=== PATIENT | male | born 1965 | race Caucasian/White ===

== ENCOUNTER → 2018-01-26 09:02 | Outpatient (CLI) | payer MEDICARE ==
[2011-03-24 11:19] VITALS: BMI 25.1
[~2018-01-26 09:02] MED LIST: AMITRIPTYLINE H50 MG PO; BREO ELLIPTA 11 EACH INH; EFFEXOR75 MG PO; HYDROCODONE-APA1 TAB PO; INCRUSE ELLI62.5 MCG INH; LIPITOR20 MG PO; NEURONTIN800 MG PO; NIASPAN500 MG PO; PRAVACHOL40 MG PO; VENTOLIN HFA18 GM INH; VOLTAREN100 GM TOPICAL; VOLTAREN75 MG PO
== END | disposition home or self-care (01) ==
LOC: D.RT 09:00
DX: J44.9 Chronic obstructive pulmonary disease, unspecified (principal)

== ENCOUNTER → 2018-02-02 15:56 | Outpatient (CLI) | payer MEDICARE ==
[2011-03-24 11:19] VITALS: BMI 25.1
[2018-02-06 18:16] LABS: FUNGAL - ASP FLAVUS Negative (Neg:<1:1); FUNGAL - ASP NIGER Negative (Neg:<1:1); FUNGAL - ASPER FUMIGATUS Negative (Neg:<1:1)
[2018-03-23 09:38] VITALS: BMI 26.3
== END | disposition home or self-care (01) ==
LOC: D.LABREF 15:56
PROVIDERS: Internal Medicine Pulmonary Disease
DX: R91.1 Solitary pulmonary nodule (principal)

== ENCOUNTER → 2018-02-04 11:10 | Outpatient (CLI) | payer MEDICARE ==
[2011-03-24 11:19] VITALS: BMI 25.1
[2018-03-23 09:38] VITALS: BMI 26.3
== END | disposition home or self-care (01) ==
LOC: D.CT 11:10
DX: R91.1 Solitary pulmonary nodule (principal)

== ENCOUNTER 2018-03-23 08:37 | Outpatient (CLI) | payer MEDICARE ==
[~2018-03-23] VITALS: Ht 188 cm; Wt 93.2 kg
--- NOTE | ~2018-03-23 | OP ---
PATIENT NAME: VERO SANDOVAL MEDICAL RECORD: [id number] :63 LOCATION:[facility] ADMISSION DATE: SURGEON: CHARITO COLON MD DATE OF OPERATION: 03/23/2018 PROCEDURE: Fiberoptic bronchoscopy. INDICATION: Ms. Sandoval was recently diagnosed with bilateral upper lobe pulmonary nodule. The PET scan SUV level was less than 2. Fiberoptic bronchoscopy was carried out to rule out infectious process. MONITORING: EKG, pulse, and blood pressure were monitored throughout the procedure. MEDICATIONS: Versed 5 mg IV in divided doses, fentanyl 100 mcg IV in divided doses. DESCRIPTION OF PROCEDURE: After obtaining conscious sedation, fiberoptic bronchoscope was easily passed through the mouth. The epiglottis was normal. The vocal cords were normal, moving equally on phonation. The main trachea was normal. The vince was sharp. There was thick whitish secretion from the right upper lobe and right lower lobe. There were no endobronchial lesions seen. The left main bronchus was normal. The subsegment to the left upper lobe, left lower lobe within normal range. There was thick whitish secretion. Specimen washing was obtained bilaterally and especially the upper lobe sent for routine culture and sensitivity, AFB and fungus and cytology. Overall, the patient tolerated the procedure very well. TRANSINT:[id number] Voice Confirmation ID: [id number] DOCUMENT ID: [id number] CHARITO COLON MD CC: [id number] DICTATION DATE: 03/23/18 141 J2EE PROGRAMMER: 03/23/18 1428 DEP CLI 03/23/18 [id number] [place] [address]
[2018-03-23] MEDS ORDERED: HYDROCODONE-APA1 TAB PO (09:23)
[2018-03-23] MEDS ORDERED: PRAVACHOL40 MG PO (09:24)
[2018-03-23] MEDS ORDERED: LIPITOR20 MG PO (09:24)
[2018-03-23] MEDS ORDERED: BREO ELLIPTA 11 EACH INH (09:25)
[2018-03-23] MEDS ORDERED: VENTOLIN HFA18 GM INH (09:25)
[2018-03-23] MEDS ORDERED: AMITRIPTYLINE H50 MG PO (09:26)
[2018-03-23] MEDS ORDERED: EFFEXOR75 MG PO (09:26)
[2018-03-23] MEDS ORDERED: INCRUSE ELLI62.5 MCG INH (09:26)
[2018-03-23] MEDS ORDERED: NEURONTIN800 MG PO (09:27)
[2018-03-23] MEDS ORDERED: NIASPAN500 MG PO (09:27)
[2018-03-23] MEDS ORDERED: VOLTAREN100 GM TOPICAL (09:27)
[2018-03-23] MEDS ORDERED: VOLTAREN75 MG PO (09:28)
[2018-03-23 09:38] VITALS: Ht 188 cm; Wt 93.2 kg
[2018-03-23 10:05] LABS: BASOPHILS 0.4 % (0-2); EOSINOPHILS 2.1 % (0-7); HEMATOCRIT 40.7 % (42.0-54.0); HEMOGLOBIN 13.2 g/dL (13.5-17.5); IMMATURE GRANULOCYTES 0.2 % (0-5); LYMPHOCYTES 29.5 % (15-50); MCH 31.7 pg (26.0-34.0); MCHC 32.4 g/dL (31.0-37.0); MCV 97.6 fL (80.0-100.0); MEAN PLATELET VOLUME 9.9 fL (7.4-10.4); MONOCYTES 8.1 % (2-11); NEUTROPHILS 59.7 % (40-80); PLATELET COUNT 158 10x3/uL (130-400); RBC 4.17 10x6/uL (4.20-6.10); RDW 14.7 % (11.5-14.5); WBC 5.6 10x3/uL (4.8-10.8)
[2018-03-23 10:12] LABS: INR 0.87 (0.85-1.17); PROTIME 11.5 SECONDS (11.6-15.0)
[2018-03-23 10:13] LABS: APTT 29.7 SECONDS (22.8-39.4)
[2018-03-24 14:28] LABS: FUNGUS STAIN Final report (())
[2018-03-24 20:09] LABS: ACID FAST SMEAR Negative (()); AFB SPECIMEN PROCESSING Concentration (())
[2018-03-25 03:13] LABS: ANGIOTENSIN CONVERTING ENZYME 56 U/L (14-82)
[2018-03-26 18:10] LABS: FUNGAL - ASP FLAVUS Negative (Neg:<1:1); FUNGAL - ASP NIGER Negative (Neg:<1:1); FUNGAL - ASPER FUMIGATUS Negative (Neg:<1:1)
[2018-03-29 18:09] LABS: FUNGUS MYCOLOGY CULTURE Preliminary report (())
[2018-04-16 12:17] LABS: ACID FAST CULTURE Positive (())
== END 2018-03-23 12:26 | disposition home or self-care (01) ==
LOC: D.OPS 08:37
PROVIDERS: Internal Medicine Pulmonary Disease
DX: R91.1 Solitary pulmonary nodule (principal); J43.9 Emphysema, unspecified; R06.00 Dyspnea, unspecified; F17.200 Nicotine dependence, unspecified, uncomplicated; Z01.812 Encounter for preprocedural laboratory examination

== ENCOUNTER → 2018-07-13 14:03 | Outpatient (CLI) | payer MEDICARE ==
[2018-03-23 09:38] VITALS: BMI 26.3
== END | disposition home or self-care (01) ==
LOC: D.CT 07-12 10:30
DX: R91.8 Other nonspecific abnormal finding of lung field (principal)

== ENCOUNTER → 2018-08-20 11:57 | Outpatient (CLI) | payer MEDICARE ==
[2018-03-23 09:38] VITALS: BMI 26.3
[2018-08-20 13:31] LABS: ALKALINE PHOSPHATASE 147 U/L (46-116); ALT (SGPT) 46 U/L (10-68); BILIRUBIN - TOTAL 0.23 mg/dL (0.2-1.3); CALC OSMOLALITY 286 mosm/kg (275-300); CALCIUM 8.8 mg/dL (8.5-10.1); CARBON DIOXIDE 28.7 mmol/L (21.0-32.0); CHLORIDE - SERUM 107 mmol/L (98-107); CREATININE - SERUM 0.7 mg/dL (0.6-1.3); GLUCOSE 91 mg/dL (74-106); POTASSIUM - SERUM 4.3 mmol/L (3.5-5.1); PROTEIN - SERUM 7.1 g/dL (6.4-8.2); SODIUM 144 mmol/L (136-145); UREA NITROGEN 13 mg/dL (7-18); eGFR NON AFRICAN AMERICAN > 90 mL/min (90-120)
[2018-08-20 13:36] LABS: BASOPHILS 0.5 % (0-2); EOSINOPHILS 2.8 % (0-7); HEMATOCRIT 43.5 % (42.0-54.0); HEMOGLOBIN 14.5 g/dL (13.5-17.5); IMMATURE GRANULOCYTES 0.5 % (0-5); LYMPHOCYTES 37.6 % (15-50); MCHC 33.3 g/dL (31.0-37.0); MCV 99.1 fL (80.0-100.0); MEAN PLATELET VOLUME 10.4 fL (7.4-10.4); NEUTROPHILS 50.6 % (40-80); PLATELET COUNT 197 10x3/uL (130-400); RBC 4.39 10x6/uL (4.20-6.10); RDW 13.9 % (11.5-14.5); WBC 3.9 10x3/uL (4.8-10.8)
== END | disposition home or self-care (01) ==
LOC: D.LABREF 11:57
PROVIDERS: Student in an Organized Health Care Education/Training Program
DX: Z51.81 Encounter for therapeutic drug level monitoring (principal); Z79.2 Long term (current) use of antibiotics

== ENCOUNTER → 2018-09-28 16:07 | Outpatient (CLI) | payer MEDICARE ==
[2018-03-23 09:38] VITALS: BMI 26.3
[2018-09-28 18:53] LABS: BASOPHILS 0.8 % (0-2); EOSINOPHILS 1.8 % (0-7); HEMATOCRIT 40.6 % (42.0-54.0); HEMOGLOBIN 13.4 g/dL (13.5-17.5); LYMPHOCYTES 34.9 % (15-50); MCH 32.4 pg (26.0-34.0); MCV 98.3 fL (80.0-100.0); MEAN PLATELET VOLUME 10.3 fL (7.4-10.4); MONOCYTES 7.9 % (2-11); NEUTROPHILS 54.6 % (40-80); PLATELET COUNT 169 10x3/uL (130-400); RBC 4.13 10x6/uL (4.20-6.10); RDW 13.7 % (11.5-14.5); WBC 3.9 10x3/uL (4.8-10.8)
[2018-09-28 19:15] LABS: ALBUMIN 3.7 g/dL (3.4-5.0); ALKALINE PHOSPHATASE 133 U/L (46-116); ALT (SGPT) 56 U/L (10-68); BILIRUBIN - TOTAL 0.26 mg/dL (0.2-1.3); CALC OSMOLALITY 284 mosm/kg (275-300); CALCIUM 8.5 mg/dL (8.5-10.1); CARBON DIOXIDE 32.5 mmol/L (21.0-32.0); CHLORIDE - SERUM 106 mmol/L (98-107); CREATININE - SERUM 0.7 mg/dL (0.6-1.3); GLUCOSE 79 mg/dL (74-106); POTASSIUM - SERUM 4.1 mmol/L (3.5-5.1); PROTEIN - SERUM 6.6 g/dL (6.4-8.2); SODIUM 143 mmol/L (136-145); UREA NITROGEN 14 mg/dL (7-18); eGFR NON AFRICAN AMERICAN > 90 mL/min (90-120)
== END | disposition home or self-care (01) ==
LOC: D.LABREF 16:07
PROVIDERS: Student in an Organized Health Care Education/Training Program
DX: Z51.81 Encounter for therapeutic drug level monitoring (principal); Z79.2 Long term (current) use of antibiotics

== ENCOUNTER → 2018-11-30 13:19 | Outpatient (CLI) | payer MEDICARE ==
[2018-03-23 09:38] VITALS: BMI 26.3
[2018-12-01 19:09] LABS: ACID FAST SMEAR Negative (()); AFB SPECIMEN PROCESSING Concentration (())
== END | disposition home or self-care (01) ==
LOC: D.LABREF 13:19
PROVIDERS: Student in an Organized Health Care Education/Training Program
DX: A31.0 Pulmonary mycobacterial infection (principal)

== ENCOUNTER → 2018-12-27 12:38 | Outpatient (CLI) | payer MEDICARE ==
[2018-03-23 09:38] VITALS: BMI 26.3
== END | disposition home or self-care (01) ==
LOC: D.CT 12:38
DX: R91.8 Other nonspecific abnormal finding of lung field (principal)

== ENCOUNTER → 2019-06-03 09:30 | Outpatient (CLI) | payer MEDICARE ==
[2018-03-23 09:38] VITALS: BMI 26.3
== END | disposition home or self-care (01) ==
LOC: D.CT 09:30
PROVIDERS: ATTEND Internal Medicine Pulmonary Disease
DX: R91.1 Solitary pulmonary nodule (principal)

== ENCOUNTER → 2019-06-08 11:03 | Outpatient (CLI) | payer MEDICARE ==
[2018-03-23 09:38] VITALS: BMI 26.3
[2019-06-09 18:08] LABS: ACID FAST SMEAR Negative (()); AFB SPECIMEN PROCESSING Concentration (())
== END | disposition home or self-care (01) ==
LOC: D.LABREF 11:03
PROVIDERS: ATTEND Internal Medicine Pulmonary Disease
DX: A31.0 Pulmonary mycobacterial infection (principal)

== ENCOUNTER → 2019-10-27 11:45 | Outpatient (CLI) | payer MEDICARE ==
[2018-03-23 09:38] VITALS: BMI 26.3
== END | disposition home or self-care (01) ==
LOC: D.CT 11:30
PROVIDERS: ATTEND Internal Medicine Pulmonary Disease
DX: R91.8 Other nonspecific abnormal finding of lung field (principal)

== ENCOUNTER 2019-11-15 07:21 | Outpatient (CLI) | payer MEDICARE ==
[~2019-11-15] VITALS: Ht 188 cm; Wt 90.9 kg
[2019-11-15 07:43] LABS: BASOPHILS 0.6 % (0-2); EOSINOPHILS 2.3 % (0-7); HEMATOCRIT 44.1 % (42.0-54.0); HEMOGLOBIN 14.8 g/dL (13.5-17.5); IMMATURE GRANULOCYTES 0.2 % (0-5); LYMPHOCYTES 34.2 % (15-50); MCH 33.4 pg (26.0-34.0); MCHC 33.6 g/dL (31.0-37.0); MCV 99.5 fL (80.0-100.0); MEAN PLATELET VOLUME 9.5 fL (7.4-10.4); MONOCYTES 9.4 % (2-11); NEUTROPHILS 53.3 % (40-80); PLATELET COUNT 182 10x3/uL (130-400); RBC 4.43 10x6/uL (4.20-6.10); RDW 13.6 % (11.5-14.5); WBC 5.3 10x3/uL (4.8-10.8)
[2019-11-15 07:53] LABS: APTT 31.3 SECONDS (22.8-39.4); INR 0.97 (0.85-1.17); PROTIME 12.4 SECONDS (11.6-15.0)
[2019-11-15] MEDS ORDERED: TRELEGY ELLIPT1 EACH INH (07:55)
[2019-11-15] MEDS ORDERED: BUPROPION HCL100 MG PO (07:56)
[2019-11-15] MEDS ORDERED: ZITHROMAX250 MG PO (07:57)
[2019-11-15] MEDS ORDERED: LIPITOR20 MG PO (07:58)
[2019-11-15] MEDS ORDERED: [UNRECOGNIZED DRUG - OTHER] TOPICAL (07:58)
[2019-11-15] MEDS ORDERED: DAKIN S TOPICAL (07:58)
[2019-11-15] MEDS ORDERED: SILVADENE20 GM TP (07:59)
[2019-11-15] MEDS ORDERED: MYAMBUTOL400 MG PO (08:00)
[2019-11-15] MEDS ORDERED: RIFADIN300 MG PO (08:01)
[2019-11-15 08:20] VITALS: Ht 188 cm; Wt 90.9 kg
--- NOTE | 2019-11-15 09:37 | NUR ---
0965 SEE POST PROCEDURE CHECKLIST FOR VITAL SIGN TRENDS. AT BEDSIDE.
--- NOTE | 2019-11-15 09:50 | NUR ---
0938 ROOM CHECK WITH PT. HAVING REMOVED BLOOD PRESSURE CUFF AND PULSE OX. STATES IT MAKES HIM FEEL CONFINED. I REPLACED FOR VITAL SIGN CHECK AND LEFT IT ON. AT SIDE.
--- NOTE | 2019-11-15 10:19 | NUR ---
1015 REMAINS NPO NO COUGHING HOB REMAINS 30 DEGREES. REMAINS AT BEDSIDE. NO DISTRESS.
[2019-11-16 19:08] LABS: ACID FAST SMEAR Negative (()); AFB SPECIMEN PROCESSING Concentration (())
== END 2019-11-15 11:05 | disposition home or self-care (01) ==
LOC: D.OPS 07:21
PROVIDERS: ATTEND Internal Medicine Pulmonary Disease
DX: J44.9 Chronic obstructive pulmonary disease, unspecified (principal); A31.0 Pulmonary mycobacterial infection; R91.1 Solitary pulmonary nodule; R06.00 Dyspnea, unspecified; F17.210 Nicotine dependence, cigarettes, uncomplicated; R05 Cough

== ENCOUNTER → 2020-05-09 12:24 | Outpatient (CLI) | payer MEDICARE ==
[2019-11-15 08:20] VITALS: BMI 25.7
[~2020-05-09 12:24] MED LIST changes: +BUPROPION HCL100 MG PO; +DAKIN S TOPICAL; +MYAMBUTOL400 MG PO; +RIFADIN300 MG PO; +SILVADENE20 GM TP; +TRELEGY ELLIPT1 EACH INH; +ZITHROMAX250 MG PO; +[UNRECOGNIZED DRUG - OTHER] TOPICAL
== END | disposition home or self-care (01) ==
LOC: D.LAB 12:24
PROVIDERS: ATTEND Internal Medicine Pulmonary Disease
DX: Z11.59 Encounter for screening for other viral diseases (principal)

== ENCOUNTER → 2020-05-11 09:57 | Outpatient (CLI) | payer MEDICARE ==
[2019-11-15 08:20] VITALS: BMI 25.7
== END | disposition home or self-care (01) ==
LOC: D.RT 09:57
PROVIDERS: ATTEND Internal Medicine Pulmonary Disease
DX: J45.909 Unspecified asthma, uncomplicated (principal); A31.0 Pulmonary mycobacterial infection

== ENCOUNTER → 2021-05-07 15:03 | Outpatient (CLI) | payer MEDICARE ==
[2019-11-15 08:20] VITALS: BMI 25.7
[2021-05-07 15:45] LABS: SARS-CoV-2 ANTIGEN NEGATIVE- SARS-COV-2 (NEGATIVE)
== END | disposition home or self-care (01) ==
LOC: D.RAD 05-03 09:00 → D.RT 05-03 09:00 → D.RAD 05-03 10:00 → D.RT 05-06 15:00 → D.RAD 05-06 15:45 → D.RT 15:00
PROVIDERS: ATTEND Internal Medicine Pulmonary Disease
DX: J44.9 Chronic obstructive pulmonary disease, unspecified (principal); Z11.52 Encounter for screening for COVID-19